=== PATIENT | male | born 1935 | race Caucasian/White ===

== ENCOUNTER 2018-12-30 09:55 | Inpatient (IN) | payer OTHER, BC ==
[~2018-12-30] VITALS: Ht 172.7 cm; Wt 74.4 kg
[~2018-12-30 09:55] MED LIST: AMLODIPINE BESY10 MG; ASPIRIN EC81 M1 PO; ASPIRIN325; BENICAR HCT 201 EACH PO; CARVEDILOL3.125 MG PO; CELEXA 10 MG TA10 M1 PO; COLACE100 MG PO; COZAAR 50 MG TA50 M2 PO; FISH OIL 1,0001 EAC5 PO; FISH OIL 1,001000 M2 PO; HYDROCODONE-AP1 EAC6 PO; IMDUR 60 MG TAB60 M1 PO; LACTULOSE10 GM/15 M PO; LISINOPRIL10 MG PO; LISINOPRIL20 MG PO; LOPRESSOR25 PO; LORATIDINE 10 M10 M1 PO; MOBIC15 MG PO; NORCO 5-325 TA1 EACH PO; PLAVIX 75 MG TA75 MG; RANEXA 500 MG500 M1 PO; RANEXA1000 MG PO; RANEXA500 MG PO; SIMVASTATIN20 MG PO; SIMVASTATIN40 MG; STOOL SOFTENER50 MG PO; TOPROL XL50 MG PO; TRAMADOL 50 MG50 MG; TYLENOL325 MG PO; ZANTAC 150MG T150 M1 PO; ZANTAC 150MG T150 MG PO; ZETIA10 MG PO
[2018-12-30 10:10] VITALS: BP 139/75
[2018-12-30] MEDS ORDERED: ELIQUIS5 MG PO (10:25)
[2018-12-30 10:34] LABS: ABSOLUTE NEUTROPHILS 6.1 thou/uL (1.4-8.2); BASOPHILS 0.7 % (0.0-2.0); EOSINOPHILS 0.8 % (0.0-3.0); HEMATOCRIT 36.7 % (42.0-52.0); HEMOGLOBIN 12.1 gm/dL (14.0-18.0); LYMPHOCYTES 12.5 % (24.0-44.0); MCH 30.5 pg (26.0-34.0); MCHC 32.9 g/dL (28.0-37.0); MCV 92.8 fL (80.0-100.0); MONOCYTES 9.8 % (1.0-8.0); PLATELET COUNT 161 thou/uL (150-400); POLYS 76.2 % (36.0-66.0); RBC 3.96 mil/uL (4.50-6.00); RDW 15.2 % (10.5-14.5)
[2018-12-30 10:37] LABS: CALCIUM 9.2 mg/dL (8.5-10.1); CREATININE 2.2 mg/dL (0.7-1.3); POTASSIUM 4.4 mmol/L (3.5-5.1)
[2018-12-30 10:47] LABS: TOTAL BILIRUBIN 0.8 mg/dL (<0.1-1.0); TOTAL PROTEIN 7.6 g/dL (6.4-8.2)
[2018-12-30 10:51] LABS: TROPONIN-I 1.74 ng/mL (<0.06)
[2018-12-30 11:22] LABS: INR 1.1; PROTIME 11.5 Seconds (9.3-11.4)
[2018-12-30 11:39] VITALS: BP 133/78
[2018-12-30 11:56] VITALS: BP 133/78
[2018-12-30 13:05] VITALS: BP 132/81
[2018-12-30 18:36] LABS: HEMOGLOBIN 11.1 gm/dL (14.0-18.0); MCH 30.5 pg (26.0-34.0); MCHC 32.7 g/dL (28.0-37.0); MCV 93.4 fL (80.0-100.0); RBC 3.64 mil/uL (4.50-6.00); RDW 14.9 % (10.5-14.5); WBC 6.5 thou/uL (4.0-11.0)
[2018-12-30 19:24] VITALS: BP 113/59
--- NOTE | 2018-12-30 19:51 | NUR ---
PT ARRIVED ON UNIT AT APPROX 1430 FROM THE ED. ADMISSION ORDERS COMPLETE. ASSESSMENT CHARTED. EDUCATED PT TO ROOM. NO C/O PAIN. VSS. A&OX4. STEADY ON FEET. ON HEPARIN DRIP. PLAN FOR CATH TOMORROW. WILL CONTINUE TO MONITOR AND FOLLOW POC.
[2018-12-31] VITALS (7 sets, daily range): BP systolic 124–146; BP diastolic 74–80
[2018-12-31 02:39] LABS: ABSOLUTE NEUTROPHILS 5.2 thou/uL (1.4-8.2); BASOPHILS 0.9 % (0.0-2.0); EOSINOPHILS 2.1 % (0.0-3.0); HEMATOCRIT 34.2 % (42.0-52.0); HEMOGLOBIN 10.9 gm/dL (14.0-18.0); LYMPHOCYTES 15.8 % (24.0-44.0); MCH 29.5 pg (26.0-34.0); MCHC 31.7 g/dL (28.0-37.0); MONOCYTES 10.5 % (1.0-8.0); PLATELET COUNT 154 thou/uL (150-400); POLYS 70.7 % (36.0-66.0); RBC 3.67 mil/uL (4.50-6.00); WBC 7.4 thou/uL (4.0-11.0)
[2018-12-31 02:53] LABS: CHOLESTEROL 209 mg/dL (<200); HDL CHOLESTEROL 44 mg/dL (>40); LDL CHOLESTEROL 150 mg/dL (<100); TC:HDL 4.8 Ratio (Not establshd); TRIGLYCERIDE 79 mg/dL (<150); VLDL 16 mg/dL (<40)
[2018-12-31 02:55] LABS: ALBUMIN 2.4 g/dL (3.4-5.0); CALCIUM 8.5 mg/dL (8.5-10.1); CREATININE 2.2 mg/dL (0.7-1.3); MAGNESIUM 1.9 mg/dL (1.8-2.4); PHOSPHORUS 3.5 mg/dL (2.5-4.9); POTASSIUM 4.5 mmol/L (3.5-5.1)
[2018-12-31 03:00] LABS: SERUM ASSESSMENT Clear
[2018-12-31 03:03] LABS: TROPONIN-I 1.07 ng/mL (<0.06)
--- NOTE | 2018-12-31 05:10 | NUR ---
ASSUMED CARE AT 1900. PT ALERT AND ORIENTED. NO PAIN REPORTED. DENIES CHEST PAIN. ON HEPARIN DRIP. APTT DOCUMENTED. PT WAS NPO SINCE MIDNIGHT FOR A POSSIBLE CARDIAC CATH TODAY. DENIES NAUSEA, VOMITING OR DIARRHEA. VITALS CURRENTLY STABLE. WILL CONTINUE TO FOLLOW PLAN OF CARE.
--- NOTE | 2018-12-31 08:34 | EKG ---
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
--- NOTE | 2018-12-31 11:50 | 2DMMODE ---
[facility] [place] [address] 2 D/M-MODE ECHOCARDIOGRAM Name: RAMÓN OLIVEROS Room #: 218-P ADM IN [facility]#: [id number] Admission: 12/30/18 Attend Phys: Neymar Gomez MD Discharge: Date of : 37 Report #: [id number] THIS REPORT FOR: //name// APPROVED REPORT Study performed: 12/31/2018 10:44:16 EXAM: Comprehensive 2D, Doppler, and color-flow Echocardiogram Patient Location: Echo lab Status: routine BSA: 1.88 HR: 80 bpm BP: 139/79 mmHg Rhythm: Pacemaker Other Information Study Quality: Adequate Technically limited study due to body habitus. Indications Myocardial Infarction. Hx: CABG, ISCM, ICD, HTN, HLP, Afib, CVA Echo Enhancing Agent Indication: Endocardial border delineation Agent(s) / Amount(s) Used: Optison 4 cc Tricuspid Valve TR Peak Torrey.: 2.29 m/s TR Peak Gr.: 20.99 mmHg Left Ventricle The left ventricle is normal size. There is hypokinesis in the anterior wall. There is hypokinesis in the anterior and lateral donato. Mild concentric left ventricular hypertrophy. Left ventricular systolic function is moderate to severely decreased. LVEF is 30-35%. Atria Left atrium is severely dilated. Right atrium is dilated. Pacemaker lead is present in the right atrium. Aortic Valve The Aortic valve is sclerotic. Mild to moderate aortic [facility] [address] [place] [address] 2 D/M-MODE ECHOCARDIOGRAM Name: RAMÓN OLIVEROS Room #: 218-P ADM IN M.R.#: [id number] Admission: 12/30/18 Attend Phys: Neymar Gomez MD Discharge: Date of : 37 Report #: [id number] regurgitation. Mitral Valve The mitral valve is normal in structure. Mild mitral regurgitation. Tricuspid Valve The tricuspid valve is normal in structure. Mild tricuspid regurgitation. Estimated PAP is 26mmHg. Pulmonic Valve Pulmonic valve is not well visualized. Great Vessels The aortic root is normal in size. IVC is normal in size and collapses >50% with inspiration. Pericardium There is no pericardial effusion. <Conclusion> The left ventricle is normal size. Left ventricular systolic function is moderate to severely decreased. Left atrium is severely dilated. Right atrium is dilated. Pacemaker lead is present in the right atrium. Mild to moderate aortic regurgitation. Mild mitral regurgitation. Mild tricuspid regurgitation. Estimated PAP is 26mmHg. <ELECTRONICALLY SIGNED> By: Sly Nathan MD 12/31/18 1150 1150 1150 Sly Nathan MD /INF
--- NOTE | 2018-12-31 12:38 | NUR ---
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 All needs on one level. he uses a cane for ambulation. He cont to drive and does all own cooking and grocery shopping. Dtr at bedside. Patient with one kidney is in process of making decision regarding cardiac cath. casemgt following for dc planning.
--- NOTE | 2018-12-31 17:01 | NUR ---
ASSESSMENTS AND INTERVENTIONS DOCCUMENTED. PATIENT RESTING. CARDIOLOGY AND NEPHROLOGY IN TALKING WITH PATIENT ABOUT PLAN OF CARE. PATIENT DECIDING TO DECLINE THE PROCEDURE AND REQUESTING TO BE DISCHARGED. CARDIOLOGY PAGED AND UPDATED ON PATIENT STATUS. HOSPITALIST TO BE PAGED. FAMILY AT BEDSIDE.
[2019-01-01 03:18] VITALS: BP 151/81
[2019-01-01 04:00] VITALS: BP 151/89
[2019-01-01 05:24] LABS: ALBUMIN 2.4 g/dL (3.4-5.0); CALCIUM 8.7 mg/dL (8.5-10.1); PHOSPHORUS 3.2 mg/dL (2.5-4.9); POTASSIUM 4.5 mmol/L (3.5-5.1)
--- NOTE | 2019-01-01 05:26 | NUR ---
POSSIBLE DISCHARGE TODAY. PT PROGRESSING TOWARDS GOALS.
[2019-01-01 08:09] VITALS: BP 158/100
[2019-01-01] MEDS ORDERED: IMDUR 30 MG TAB30 M1 PO (08:13)
[2019-01-01] MEDS ORDERED: METOPROLOL SUCC50 MG PO (08:13)
[2019-01-01] MEDS ORDERED: ELIQUIS2.5 MG PO (08:13)
[2019-01-01] MEDS ORDERED: CLOPIDOGREL75 MG PO (08:13)
[2019-01-01 10:15] VITALS: BP 158/100
--- NOTE | 2019-01-01 10:58 | NUR ---
ASSESSMENT CHARTED. PT ALERT AND ORIENTED. VSS. DENIED HAVING PAIN OR DISCOMFORT. REPORT FEELING MUCH BETTER TODAY. SEEN BY DR. CHAMPAGNE, AND DR. RAMIREZ. ORDERS GIVEN TO DISCHARGE PT TO HOME. DISCHARGE INSTRUCTIONS GIVEN TO PT. PT VERBERLISED UNDERSTANDING.
--- NOTE | 2019-01-09 07:41 | HC ---
[facility] [place] [address] CONSULTATION Name: OLIEVROSRAMÓN CHRISTIAN Room #: 218-P [facility] IN M.R.#: [id number] Admission: 12/30/18 Attend Phys: Neymar Gomez MD Discharge: 01/01/19 Date of : 37 Report #: [id number] THIS REPORT FOR: //name// CC: Nathan Gomez REASON FOR CONSULTATION: Chronic kidney disease. REASON FOR THE PRESENTATION: Chest pain. HISTORY OF PRESENT ILLNESS: An 83-year-old status post nephrectomy with extensive past medical history including coronary artery disease, status post CABG, heart failure with an ejection fraction of around 40%, status post AICD, hypertension, history of CVA and GI bleeding. He is also known to have paroxysmal AFib and obstructive sleep apnea with extensive peripheral vascular disease. He presented with typical cardiac chest pain yesterday. This was left-sided with radiation to the left jaw and shoulder. This was associated with nausea. The patient's troponins on presentation were elevated. He was evaluated by cardiac team. I am being consulted to manage his chronic kidney disease and give further input regarding management of his coronary artery disease in the face of his chronic kidney disease. PAST MEDICAL HISTORY: Extensive and includes the followin. Prostate cancer. 2. Coronary artery disease. 3. Hypertension. 4. Chronic kidney disease. 5. Status post nephrectomy. 6. CVA. 7. Obstructive sleep apnea. 8. GI bleeding. 9. Post-CABG. 10. Post right carotid endarterectomy. 11. Hernia repair. 12. Post-AICD. FAMILY HISTORY: Significant for heart disease. SOCIAL HISTORY: Lives with his family. No drug or alcohol abuse. REVIEW OF SYSTEMS: GENERAL: No fever or chills. CARDIOVASCULAR: As per the history of present illness. PULMONARY: No cough or hemoptysis. GASTROINTESTINAL: No nausea or vomiting. GENITOURINARY: No frequency, no urgency. SKIN: No rash or ulcerations. [facility] [address] [place] [address] CONSULTATION Name: RAMÓN OLIVEROS Room #: 218-P [facility].#: [id number] Admission: 12/30/18 Attend Phys: Neymar Gomez MD Discharge: 01/01/19 Date of : 37 Report #: [id number] NEUROLOGICAL: No headache. No weakness, no dizziness. MEDICATIONS: Currently, the patient is maintained on the followin. Eliquis. 2. Ranexa. 3. Carvedilol. 4. Aspirin. PHYSICAL EXAMINATION: GENERAL: The patient is alert, oriented, in no apparent distress. VITAL SIGNS: Blood pressure is 131/75, pulse rate 79. HEAD AND NECK: No jugular venous distention. CHEST: No crackles. CARDIOVASCULAR: No rub detected. ABDOMEN: Soft, nontender. LOWER EXTREMITIES: Trace edema. LABORATORY DATA: Reviewed. Hemoglobin is 10.9. Creatinine is at baseline at 2.2. IMPRESSION AND PLAN: 1. Chronic kidney disease at baseline. 2. Status post nephrectomy. 3. Coronary artery disease. 4. Peripheral vascular disease. 5. Status post CABG. 6. Status post AICD. 7. Atrial fibrillation. 8. History of gastrointestinal bleeding. 9. The patient's renal function is stable at baseline. I had a lengthy discussion with the patient regarding his chronic kidney disease, solitary kidney status. I thoroughly explained for the patient that he is at very high risk of contrast-induced nephropathy and progressing to end-stage renal disease given his risk factor and the solitary kidney status. I also explained for the patient that I did not make any decisions regarding whether to proceed with the catheterization or not. 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 If the patient is to proceed with the cardiac catheterization, we will continue to hydrate him and keep an eye on his renal function. <ELECTRONICALLY SIGNED> By: Marnie Clark MD 01/09/19 0741 0900 08 Marnie Clark MD /nt
== END 2019-01-01 11:26 | disposition home or self-care (01) | DRG 280 ==
LOC: ER 09:55 → 2N 11:18 → EROBS 11:18 → 2N 13:05 → ENTRNSPT 01-01 11:09 → 2N 01-01 11:26
PROVIDERS: Emergency Medicine; Hospitalist; Nurse Practitioner; ADMIT Hospitalist
DX: I21.4 Non-ST elevation (NSTEMI) myocardial infarction (principal); E43 Unspecified severe protein-calorie malnutrition; I50.20 Unspecified systolic (congestive) heart failure; I13.0 Hypertensive heart and chronic kidney disease with heart failure and stage 1 through stage 4 chronic kidney disease, or unspecified chronic kidney disease; E46 Unspecified protein-calorie malnutrition; Q60.0 Renal agenesis, unilateral; I25.10 Atherosclerotic heart disease of native coronary artery without angina pectoris; I48.0 Paroxysmal atrial fibrillation; G47.33 Obstructive sleep apnea (adult) (pediatric); I73.9 Peripheral vascular disease, unspecified; N18.9 Chronic kidney disease, unspecified; I48.91 Unspecified atrial fibrillation; E78.5 Hyperlipidemia, unspecified; I25.5 Ischemic cardiomyopathy; I08.3 Combined rheumatic disorders of mitral, aortic and tricuspid valves; Z95.1 Presence of aortocoronary bypass graft; Z90.5 Acquired absence of kidney; Z95.810 Presence of automatic (implantable) cardiac defibrillator; Z86.73 Personal history of transient ischemic attack (TIA), and cerebral infarction without residual deficits; Z85.46 Personal history of malignant neoplasm of prostate; Z82.49 Family history of ischemic heart disease and other diseases of the circulatory system; Z79.01 Long term (current) use of anticoagulants; Z79.899 Other long term (current) drug therapy; Z85.528 Personal history of other malignant neoplasm of kidney; Z99.81 Dependence on supplemental oxygen; Z88.0 Allergy status to penicillin; Z88.6 Allergy status to analgesic agent; Z88.8 Allergy status to other drugs, medicaments and biological substances; Z68.24 Body mass index [BMI] 24.0-24.9, adult
CPT/HCPCS: 10081

== ENCOUNTER 2019-01-09 10:44 | Inpatient (IN) | payer OTHER, BC ==
[~2019-01-09] VITALS: Ht 172.7 cm; Wt 74.8 kg
[~2019-01-09 10:44] MED LIST changes: +CLOPIDOGREL75 MG PO; +ELIQUIS2.5 MG PO; +ELIQUIS5 MG PO; +IMDUR 30 MG TAB30 M1 PO; +METOPROLOL SUCC50 MG PO
[2019-01-09 10:50] VITALS: BP 98/62
[2019-01-09] MEDS ORDERED: CARVEDILOL12.5 MG PO (11:17)
[2019-01-09 11:24] LABS: ABSOLUTE NEUTROPHILS 8.5 thou/uL (1.4-8.2); BASOPHILS 0.8 % (0.0-2.0); EOSINOPHILS 0.3 % (0.0-3.0); HEMATOCRIT 31.8 % (42.0-52.0); HEMOGLOBIN 10.1 gm/dL (14.0-18.0); LYMPHOCYTES 11.2 % (24.0-44.0); MCHC 31.9 g/dL (28.0-37.0); MCV 94.1 fL (80.0-100.0); MONOCYTES 8.2 % (1.0-8.0); PLATELET COUNT 165 thou/uL (150-400); POLYS 79.5 % (36.0-66.0); RBC 3.38 mil/uL (4.50-6.00); RDW 15.3 % (10.5-14.5); WBC 10.7 thou/uL (4.0-11.0)
[2019-01-09 11:31] LABS: CALCIUM 9.4 mg/dL (8.5-10.1); CREATININE 2.5 mg/dL (0.7-1.3)
[2019-01-09 11:43] LABS: ALBUMIN 2.3 g/dL (3.4-5.0); TOTAL BILIRUBIN 0.5 mg/dL (<0.1-1.0); TOTAL PROTEIN 6.8 g/dL (6.4-8.2)
[2019-01-09 11:44] LABS: TROPONIN-I 4.08 ng/mL (<0.06)
[2019-01-09 12:45] VITALS: BP 118/85
--- NOTE | 2019-01-09 12:58 | NUR ---
ATTEMPTED TO GIVE REPORT. IP NURSE BUSY
[2019-01-09 13:13] VITALS: BP 105/65; BP 120/91
[2019-01-09 14:00] VITALS: BP 119/86
[2019-01-09 16:30] VITALS: BP 129/90
--- NOTE | 2019-01-09 19:16 | NUR ---
ASSUMED CARE @ 0700 01/09/19, PT ASSESSMENTS AND VSS COMPLETE PER CCU ORDERS, TROPONIN RESULTS CALLED TO AIDEN JOHNSON, RN ADVISED TO BE CALLED TO CARDIOLOGY, DR MAGDA MORGAN CALLED ABOUT THE RECENT TROPONIN, RN TOLD TO NOT CALL IN CRITICAL TROPONINS AND CANCEL Q6H TROPONINS.
[2019-01-09 19:50] VITALS: BP 120/81
[2019-01-10] VITALS (7 sets, daily range): BP systolic 90–135; BP diastolic 61–83
[2019-01-10 03:59] LABS: ALBUMIN 2.2 g/dL (3.4-5.0); CALCIUM 8.9 mg/dL (8.5-10.1); CREATININE 2.6 mg/dL (0.7-1.3); POTASSIUM 4.3 mmol/L (3.5-5.1)
--- NOTE | 2019-01-10 04:03 | NUR ---
A/O X 4.DENIES ANY PAIN AND SOB.ON O2 2L NC.INCONTINENT AT TIMES AND WET THE BED.NPO SINCE MIDNIGHT.PATIENT STATES HE WANTS WATER.EXPLAINED TO HIM THAT HE IS NPO.MONITOR SHOWS V PACED RHYTHM.THIS MORNING TROPONIN IS 4.82.DENIES CHEST PAIN AND RESULT WAS NOT CALLED TO THE STOCKFEED MILLER PER INSTRUCTION NOT TO CALL.POC CONTINUED.
[2019-01-10 04:04] LABS: TROPONIN-I 4.82 ng/mL (<0.06)
[2019-01-10 04:33] LABS: ABSOLUTE NEUTROPHILS 8.8 thou/uL (1.4-8.2); BASOPHILS 0.3 % (0.0-2.0); EOSINOPHILS 0.4 % (0.0-3.0); HEMATOCRIT 33.8 % (42.0-52.0); HEMOGLOBIN 10.7 gm/dL (14.0-18.0); LYMPHOCYTES 10.3 % (24.0-44.0); MCH 29.7 pg (26.0-34.0); MCHC 31.7 g/dL (28.0-37.0); MCV 93.8 fL (80.0-100.0); MONOCYTES 7.9 % (1.0-8.0); PLATELET COUNT 167 thou/uL (150-400); POLYS 81.1 % (36.0-66.0); RDW 15.1 % (10.5-14.5); WBC 10.9 thou/uL (4.0-11.0)
[2019-01-10] MEDS ORDERED: ADULT LOW DOSE81 MG PO (11:56)
[2019-01-10] MEDS ORDERED: DEMADEX20 MG PO (11:57)
--- NOTE | 2019-01-10 12:23 | EKG ---
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
--- NOTE | 2019-01-10 12:28 | EKG ---
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
--- NOTE | 2019-01-10 12:36 | NUR ---
FAXED REFERRAL TO [facility] SPOKE WITH ADEN IN INTAKE SHE RECEIVED REFERRAL AND CAN ACCEPT. DP TO FOLLOW
--- NOTE | 2019-01-10 12:54 | NUR ---
PT CARE ASSUMED APPROX 0700. ASSESSMENTS CHARTED. PT DENIES PAIN AND SOA. VSS. WEANED FROM 2L NC TO RA WITHOUT ISSUE. UP WITH SBA. PT GOING HOME WITH HOSPICE. DISCHARGE PAPERWORK REVIEWED WITH PT AND PT'S DAUGHTER. BOTH DENY QUESTIONS AND CONCERNS REGARDING POC, DISCHARGE AND GENERAL POST HOSPITAL CARES. IV OUT, TELE BOX OFF. WILL ESCORT PT OUT TIMELY.
--- NOTE | 2019-01-10 13:10 | NUR ---
Hospice consult rec'd for dc to home today. Venetian Blind Machine Operator visited with the pt and his dtr at bedside this am. The pt does not want to have cardiac cath or any other aggressive tx. He wants to stay in his apt as long as possible with supportive care. Hospice benefits, services, and coverage discussed. Pt is agreeable. Dtr is familiar with [facility] hosp[facility] and would like to have referral sent to them. Dc service planner faxed referral. Venetian Blind Machine Operator spoke with intake and they can admit to service this afternoon. Pt would like to go home mid day today via dtrs car. All parties in agreement. The [facility] liason was here to talk with them. The hospice admission RN will be out this afternoon. No dme indicated at this time. Outside the hospital DNR form signed by the pt and the attending. The original is being sent home with the pt. Care team updated. Pt dcing home with hospice soon.
--- NOTE | 2019-01-10 13:41 | NUR ---
FAXED REFERRAL TO [facility] SPOKE WITH ADALID IN INTAKE AND THEY RECEIVED REFERRAL AND CAN ACCEPT. FAXED DC ORDERS/SUMMARY AND RECEIVED CONFIRMATION FROM ADALID AND THEY WILL NOTIFY PT'S FAMILY.
== END 2019-01-10 14:00 | disposition hospice, home (50) | DRG 280 ==
LOC: ER 10:44 → EROBS 12:13 → 2N 12:13 → ENTRNSPT 01-10 13:03 → EDTRNSPTSTS 01-10 13:09 → 2N 01-10 14:00
PROVIDERS: Nurse Practitioner; Nurse Practitioner Family; ADMIT Hospitalist
DX: I21.4 Non-ST elevation (NSTEMI) myocardial infarction (principal); I50.23 Acute on chronic systolic (congestive) heart failure; I13.0 Hypertensive heart and chronic kidney disease with heart failure and stage 1 through stage 4 chronic kidney disease, or unspecified chronic kidney disease; N18.9 Chronic kidney disease, unspecified; I25.10 Atherosclerotic heart disease of native coronary artery without angina pectoris; E78.5 Hyperlipidemia, unspecified; I25.5 Ischemic cardiomyopathy; G47.33 Obstructive sleep apnea (adult) (pediatric); I48.0 Paroxysmal atrial fibrillation; Z98.42 Cataract extraction status, left eye; Z95.810 Presence of automatic (implantable) cardiac defibrillator; Z95.1 Presence of aortocoronary bypass graft; Z98.41 Cataract extraction status, right eye; Z85.46 Personal history of malignant neoplasm of prostate; Z79.01 Long term (current) use of anticoagulants; Z90.5 Acquired absence of kidney; Z85.520 Personal history of malignant carcinoid tumor of kidney; Z88.5 Allergy status to narcotic agent; Z88.0 Allergy status to penicillin; Z88.8 Allergy status to other drugs, medicaments and biological substances; Z86.73 Personal history of transient ischemic attack (TIA), and cerebral infarction without residual deficits; Z82.49 Family history of ischemic heart disease and other diseases of the circulatory system; Z95.5 Presence of coronary angioplasty implant and graft
CPT/HCPCS: 10194